=== PATIENT | female | born 1995 | race Two or more races ===

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

== ENCOUNTER 2017-08-13 05:12 | Emergency (ER) | payer OTHER ==
[~2017-08-13] VITALS: Ht 167.6 cm; Wt 56.8 kg
[2017-08-13 06:52] VITALS: BP 106/73
== END 2017-08-13 06:53 | disposition home or self-care (01) ==
LOC: EME 05:12
DX: R10.30 Lower abdominal pain, unspecified (principal); F17.200 Nicotine dependence, unspecified, uncomplicated; Z88.0 Allergy status to penicillin; Z88.1 Allergy status to other antibiotic agents